=== PATIENT | female | born 1960 | race Two or more races ===

== ENCOUNTER 2020-10-23 09:43 | Emergency (ER) | payer BC, OTHER ==
[2020-10-23 09:58] VITALS: RESP 16
[2020-10-23] MEDS ORDERED: IBUPROFEN 600 MG TAB PO STA (10:03)
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
[2020-10-23 12:36] VITALS: BP 138/79; PULSE 78; TEMP 97.8
== END 2020-10-23 12:35 | disposition home or self-care (01) ==
LOC: EC 09:43
DX: S69.91XA Unspecified injury of right wrist, hand and finger(s), initial encounter (principal); S60.221A Contusion of right hand, initial encounter; Z79.899 Other long term (current) drug therapy; Z79.82 Long term (current) use of aspirin; Z91.018 Allergy to other foods; Z91.041 Radiographic dye allergy status; Z88.1 Allergy status to other antibiotic agents; Z88.3 Allergy status to other anti-infective agents; V89.2XXA Person injured in unspecified motor-vehicle accident, traffic, initial encounter; Y92.410 Unspecified street and highway as the place of occurrence of the external cause
CPT/HCPCS: 29125; 71250; 72125; 74176; 99285